=== PATIENT | male | born 1945 | race Caucasian/White ===

== ENCOUNTER 2018-03-02 06:56 | Observation (INO) | payer OTHER ==
[2018-03-02] MEDS ORDERED: NS 1,000 ML IV ONE (07:01)
--- NOTE | 2018-03-02 07:23 | CPEKG ---
Heart Rate: 67 RR Interval: 896 P-R Interval: 212 QRSD Interval: 118 QT Interval: 428 QTC Interval: 452 P [place]: -4 QRS [place]: -13 T Wave [place]: 68 EKG Severity - ABNORMAL ECG - EKG Impression: SINUS RHYTHM EKG Impression: VENTRICULAR TRIGEMINY EKG Impression: INCOMPLETE RIGHT BUNDLE BRANCH BLOCK Electronically Signed By: Parish Marcus 02-Mar-2018 10:57:42
[2018-03-02 07:40] LABS: PLATELET COUNT 256 10^3/uL (150-400)
[2018-03-02 07:52] LABS: PROTIME(PATIENT) 13.4 SEC (12.0-15.0)
[2018-03-02] MEDS ORDERED: MIDAZOLAM 2 MG/2 ML VIAL IVP ONE (08:07)
--- NOTE | 2018-03-02 08:07 | PDANEPAE ---
ANE Past Medical History - Pulmonary History Hx Sleep Apnea: No ANE Review of Systems Review of Systems: ANE Patient History - Allergies Allergies/Adverse Reactions: No Known Allergies Allergy (Unverified 06/16/10 06:43) - Home Medications Home Medications: Dutasteride [Avodart 0.5 MG (*)] 0.5 mg PO DAILY 06/16/10 [Last Taken Unknown] Metoprolol Succinate Xr [Toprol Xl 25 mg (*)] 12.5 mg PO DAILY 02/23/18 [Last Taken Unknown] Omeprazole 20 mg PO DAILY 02/23/18 [Last Taken Unknown] Tamsulosin HCl [Flomax 0.4 MG (*)] 0.4 mg PO DAILY 02/23/18 [Last Taken Unknown] - Smoking Hx Smoking Status: Former smoker ANE Labs/Vital Signs - Labs Result Diagrams: 03/02/18 07:26 03/02/18 07:26 - Vital Signs Height: 182.88 cm Weight: 77.111 kg ANE Physical Exam - Airway Neck exam: FROM Mallampati Score: Class 1 Mouth exam: normal dental/mouth exam - Pulmonary Pulmonary: no respiratory distress - Cardiovascular Cardiovascular: regular rate and rhythym - ASA Status ASA Status: II ANE Anesthesia Plan Anesthesia Plan: general endotracheal anesthesia, GA w LMA
[2018-03-02] MEDS ORDERED: REMIFENTANIL HCL 1 MG VIAL ONE (08:19)
[2018-03-02] MEDS ORDERED: PROPOFOL/EMULSION 500 MG/50 ML BOTTLE IV ONE ×2 (08:20→09:22)
[2018-03-02] MEDS ORDERED: LIDOCAINE 1% 300 MG/30 ML SDV ONE (08:22)
[2018-03-02] MEDS ORDERED: BUPIVACAINE 0.75% 10 ML SDV ONE (08:22)
[2018-03-02] MEDS ORDERED: ISOPROTERENOL HCL/D5W 0.2 MG/50 ML BAG IV ONE (08:22)
[2018-03-02] MEDS ORDERED: HEPARIN 10,000 UNIT/10 ML MDV (1,000 UNIT/ML) ONE (08:22)
[2018-03-02] MEDS ORDERED: MIDAZOLAM 2 MG/2 ML VIAL ONE (08:29)
--- NOTE | 2018-03-02 08:52 | PDGENHP ---
History & Physical Chief Complaint: palpitations History of Present Illness: palpitations, dizziness Relevant Physical Exam: s1s2 rrr cta ao3 Cardiorespiratory Assessment: for eps and ablation of either svt or afl
--- NOTE | 2018-03-02 10:54 | EPPROC ---
Electrophysiology Procedure Note: ELECTROPHYSIOLOGIC STUDY AND CATHETER MEDIATED ABLATION OF SLOW/FAST AV EFRAIN REENTRY TACHYCARDIA PROCEDURES PERFORMED: 97131-79 EP evaluation with RA/RV/LA pace/record, with arrhythmia induction 44925-30 EP evaluation with RA/RV pace record, insert/reposition catheter, with arrhythmia induction 65222 Intracardiac catheter ablation, SVT arrhythmogenic focus 98418 3D mapping Fluoroscopy INDICATION: SVT with presyncope PROCEDURE: Catheters & Anesthesia: The patient arrived in the Electrophysiology Laboratory in the fasting state. The right clavicular region, right groin, and left groin area were prepped and draped in the usual sterile manner. Anesthesiologist Dr. Sorin Sellers administered general anesthesia. Appropriate non-invasive blood pressure, pulse oximetry and end-tidal CO2 monitoring was established. All catheters were placed percutaneously using the modified Seldinger technique , and advanced into position under fluoroscopic guidance. One #6 Sudanese hexapolar non-deflectable electrode catheter was inserted into the right atrial appendage via the left femoral vein (2mm spacing; except the proximal ring which was 25cm from the tip used for unipolar recordings). One #7 Sudanese deflectable octapolar electrode catheter was advanced to the His-bundle position via the left femoral vein (2mm spacing). One #7 Sudanese deflectable quadrapolar catheter was advanced to the anteroseptal right ventricle via the right femoral vein. One #7 Sudanese deflectable catheter with 10 pairs of electrodes was placed via the right femoral vein into the coronary sinus. Heparin was given to keep ACT > 180 s. Programmed stimulation was performed from the right atrium, right ventricle and coronary sinus (left atrium). Parahisian pacing demonstrated constant H-A interval with changing V-A intervals and stimulus-A intervals during capture and loss of capture of proximal RBB proving retrograde conduction over AV node. AVNRT was induced easily at baseline. Ventricular extrastimuli delivered during tachycardia without altering antegrade His bundle activation did not advance next atrial potential, indicating that the tachycardia was not utilizing an accessory pathway for retrograde conduction. VA interval was 10 ms. Post entrainment of the tachycardia from the ventricle, there was VAHV response. Mapping of the right atrium and coronary sinus during AVNRT identified earliest atrial activation above the tendon of Jonny at a level slightly posterior to the level of the His bundle, consistent with retrograde conduction over the fast AV efrain pathway. A #8 Sudanese deflectable quadrapolar electrode catheter (2mm-5mm-2mm spacing) with 4 mm tip electrode and sensor for the 3D mapping Carto system was advanced to the right atrium. 3 D mapping of the inter-atrial septum and coronary sinus was performed and location of the AV node was marked. A SL3 sheath was used. RF applications were delivered to the region between the tricuspid annulus and the coronary sinus ostium, at the level of the upper edge of the coronary sinus ostium. Radiofrequency applications were also delivered along the roof of the proximal coronary sinus. Junctional rhythm occurred during all of the RF applications. Programmed stimulation was continued post ablation at baseline and during graded doses of isoproterenol upto 2mcg/min. Sustained AVNRT was not inducible. There were no echo beats. Atrial fibrillation was induced x 1 while burst pacing, this changed to AFL and required cardioversion. The catheters were removed. Sheaths were removed in the EP lab after applying subcutaneous purse string suture. The patient was transferred to the cardiovascular holding area in stable condition. There were no apparent complications. Results: A. Spontaneous Intervals: Pre ablation SCL 660 ms AH 80 ms HV 45 ms Post ablation SCL 710 ms AH 70 ms HV 45 ms B. Antegrade AV efrain function (decremental pacing) Pre ablation FPERP 420 ms SPERP 410 ms WBB CL 400 ms Post ablation FPERP 390 ms WBB CL 380 ms C. Retrograde AV efrain function (decremental pacing) Pre ablation FPERP 380 ms WBB CL 370 ms D. Arrhythmias: Sustained slow/fast AVNRT Cycle length 480 ms, AH interval 400 ms, METZGER interval 80 ms VA interval 10 ms CONCLUSIONS 1. AV efrain reentrant tachycardia using the slow AV efrain pathway for antegrade conduction and the fast AV efrain pathway for retrograde conduction. ( Slow/fast AVNRT). 2. Successful ablation of the slow AV efrain pathway with elimination of 1:1 antegrade conduction over the slow AV efrain pathway, all retrograde conduction over the slow AV efrain pathway and the inducibility of AVNRT. 3. No complications. Patient Problems: Problems Problem Status Onset Palpitations Acute
--- NOTE | 2018-03-02 11:04 | POSTANESTH ---
Post Anesthetic Evaluation Cardiovascular Status: Similar to Pre-Op Cond Respiratory Status: Similar to Pre-op Cond. Level of Consciousness/Mental Status: Alert and Oriented Pain Control: Adequate, Prn Tx Ordered Nausea/Vomiting Control: Adequate, Prn Tx Ordered Complications Possibly Related to Anesthesia: None Noted
--- NOTE | 2018-03-02 11:16 | CPEKG ---
Heart Rate: 54 RR Interval: 1111 P-R Interval: 216 QRSD Interval: 112 QT Interval: 476 QTC Interval: 452 P [place]: 56 QRS [place]: -23 T Wave [place]: 48 EKG Severity - ABNORMAL ECG - EKG Impression: SINUS RHYTHM EKG Impression: NONSPECIFIC INTRAVENTRICULAR CONDUCTION DELAY Electronically Signed By: Parish Marcus 03-Mar-2018 08:54:14
[2018-03-03 04:30] LABS: PLATELET COUNT 242 10^3/uL (150-400)
[2018-03-03 08:09] VITALS: BP 139/78
--- NOTE | 2018-03-03 08:57 | CPEKG ---
Heart Rate: 67 RR Interval: 896 P-R Interval: 216 QRSD Interval: 114 QT Interval: 412 QTC Interval: 435 P [place]: 14 QRS [place]: -52 T Wave [place]: 65 EKG Severity - ABNORMAL ECG - EKG Impression: SINUS RHYTHM EKG Impression: NONSPECIFIC IVCD WITH LAD Electronically Signed By: Salvatore Lyons 04-Mar-2018 11:12:45
--- NOTE | 2018-03-03 08:59 | ECHO ---
[email or web address] [address] [address] Main: [phone] Fax: Transthoracic Echocardiogram Name: THOMAS ESCALANTE MR#: [id number] Study Date: 03/03/2018 Study Time: 08:02 AM Date of : 1945 Age: 72 year(s) Height: 182.9 cm (72 in.) Weight: 77.11 kg (170 lb.) BSA: 1.99 m2 Gender: Male Examination: Echo Indication: F/U post EP study Image Quality: Contrast: Requested by: Parish Marcus BP: 146 mmHg/92 mmHg Heart Rate: Rhythm: Indication: F/U post EP study Procedure Staff Financial Compliance Manager: Alka Frank RDCS Reading Physician: Parish Marcus MD Requesting Provider: Parish Marcus MD Conclusions: Mildly dilated left ventricle. Normal global systolic LV function. Mild mitral valve regurgitation is present. MV chordal NOEL without obstruction.. Mild aortic valve regurgitation is present. Mildly dilated ascending aorta measuring 4.3 cm. Recc repeat echo in 1 year to assess ascending aorta Measurements: Chambers Valvular Assessment AV/MV Valvular Assessment TV/PV Normal Normal Normal Name Value Range Name Value Range Name Value Range Ao Chiquita (MM): 4.3 cm (2.2 cm-3.7 AV meanP mmHg ( - ) cm) AR (PHT): 809 ms ( - ) IVSd (2D): 0.7 cm (0.6 cm-1.1 MV E Vmax: 0.46 m/s ( - ) cm) MV A Vmax: 0.64 m/s ( - ) LVDd (2D): 6.2 cm (4.2 cm-5.9 MV E/A: 0.72 ( - ) cm) LVDs (2D): 4.0 cm (2.1 cm-4 cm) LVPWd (2D): 0.9 cm (0.6 cm-1 cm) LVEF (MOD4): 72 % (>=55 %) EF Range: 65-70 % Continued Measurements: Chambers Valvular Assessment AV/MV Name Value Name Value LADs: 4.1 cm MV E' Septal: 0.05 m/s Patient: THOMAS ESCALANTE Study Date: 03/03/2018 Page 1 of 2 08:02 AM LADs Lon.6 cm MV E/E' Septal: 9.40 LA Area: 23.8 cm2 MV E/E' Lateral: 11.80 AR Vmax: 4.08 cm/s Additional Vessels Name Value Ao Ascendin.3 cm Findings: Left Ventricle: Mildly dilated left ventricle. No LV hypertrophy. Normal global systolic LV function. The ejection fraction is estimated to be 65-70 %. No regional wall motion abnormality. Right Ventricle: Normal size right ventricle. Left Atrium: The left atrium is normal in size. Right Atrium: The right atrium is normal in size. Mitral Valve: Mild mitral valve regurgitation is present. MV chordal NOEL without obstruction.. Aortic Valve: The aortic valve is normal in appearance and function. The aortic valve is tri-leaflet. Mild aortic valve regurgitation is present. Tricuspid Valve: The tricuspid valve is normal in appearance and function. Trivial tricuspid valve regurgitation. Pulmonic Valve: The pulmonic valve is normal in appearance and function. Trivial pulmonic valve regurgitation. Aorta: The aorta is normal. Mildly dilated ascending aorta measuring 4.3 cm. Pericardium: No pericardial effusion. (No Signature Object) Patient: THOMAS ESCALANTE Study Date: 03/03/2018 Page 2 of 2 08:02 AM [id number]
[2018-03-03] MEDS ORDERED: ASPIRIN 81 MG CHEWABLE TAB PO SCH (09:00)
[2018-03-03] MEDS ORDERED: PANTOPRAZOLE SODIUM 40 MG TAB PO SCH (09:00)
[2018-03-03] MEDS ORDERED: DUTASTERIDE 0.5 MG CAP PO SCH (09:00)
--- NOTE | 2018-03-03 10:26 | GDS ---
[f rep st] DISCHARGE SUMMARY DISCHARGE DIAGNOSES: 1. AV martín reentrant tachycardia, status post ablation. 2. Ascending aortic aneurysm measuring 4.3 cm. 3. Hypertension. HOSPITAL COURSE: For detailed H and P, please see prior dictation. Briefly, the patient is a 72-yea r-old male who is referred to our office with SVT at a rate of 140 to 150 beats per minute. Earlier this year, he was shopping at [employer] when he had sudden onset of dizziness, presyncope and palpi tations. He had to sit down in the aisle and waited for his symptoms to resolve. After 5-10 minutes , his symptoms subsided and he was evaluated by Dr. Ulises Jalloh. He was found to have SVT at rate o f 140 to 150 beats per minute by Holter monitoring. He was started on metoprolol, but complained of significant orthostatic symptoms associated with the medication. He had a consultation with Dr. Shey Marcus, and ultimately decided to proceed with an EP study. He had am EP study on 03/02 and was iden tified to have an AV martín reentrant tachycardia, which was ablated. The following morning, he denie d any chest discomfort or palpitations. He was monitored on telemetry and remained in normal sinus r hythm. His EKG the day of discharge showed normal sinus rhythm with a heart rate of 67 beats per min vale. He has evidence of a first-degree AV block with a MA interval of 216. His troponin peaked at 0 .113. An echocardiogram at the time of discharge revealed preserved LV function without any evidence of pericardial effusion. He does have an ascending aortic aneurysm measuring 4.3 cm. There is also mild mitral regurgitation and a mildly dilated left ventricle. PHYSICAL EXAMINATION: GENERAL: The patient appears in no acute distress. VITALS: Blood pressure 1 39/78, heart rate 57, oxygen saturation 96% on room air, afebrile. LUNGS: Clear to auscultation. N o wheezes, rhonchi, or crackles auscultated. CARDIAC: Regular rate and rhythm without any significa nt murmurs, rubs, or gallops appreciated. EXTREMITIES: Bilateral groins where access was obtained f or the EP study and ablation are clean and intact without any evidence of infection or hematoma. DISCHARGE MEDICATIONS: Aspirin 81 mg daily, metoprolol succinate 12.5 mg daily, Avodart 0.5 mg daily , Flomax 0.4 mg daily, omeprazole 20 mg daily. PLAN: The patient is currently stable and ready for discharge home. He has been given groin precaut ions. He will follow up as scheduled on April 01 at 1:[address] Parish Marcus. He has a known ascending aortic aneurysm measuring 4.3 cm. He will need an echo in 1 year. He will also continue metoprolol. Unfortunately, he had significant orthostatic symptoms on metoprolol succi tiburcio 25 mg daily. His dose has been reduced to 12.5 mg daily. If he continues to be symptomatic on the lower dose, consider alternative antihypertensive medical therapy with lisinopril. Greater than 30 minutes was spent coordinating the patient's care today. /[id number]/MODL
--- NOTE | 2018-03-03 16:30 | ASMTDCNOTE ---
Case Management Discharge Discharge Order Complete? Answers: Yes Patient to Obtain Answers: via Family Medications Transportation Arranged Answers: Family/Friends Discharge Comments Notes: Pt D/C 'ed home independently. No CM needs identified. He has a follow up appt scheduled for 04/01 at 1:30PM with Dr Parish Marcus. Date Signed: 03/03/2018 04:30 PM Electronically Signed By:Stefanie Wild
--- NOTE | 2018-03-03 16:31 | ASMTLACE ---
NITA Acuity / Level of Answers: No Care: Did the patient have an inpatient admission? # of Emergency department Answers: 0 visits in the last 6 months Date Signed: 03/03/2018 04:31 PM Electronically Signed By:Stefanie Wild
== END 2018-03-03 11:20 | disposition home or self-care (01) ==
LOC: FCATH 06:56 → F2W 10:54
PROVIDERS: ADMIT Internal Medicine Cardiovascular Disease; ATTEND Internal Medicine Cardiovascular Disease
DX: I47.1 Supraventricular tachycardia (principal); I71.2 Thoracic aortic aneurysm, without rupture; I10 Essential (primary) hypertension
CPT/HCPCS: 93005; 93306; 93613; 93621; 93623; 93653; C1730; C1731; C1732; C1893; J1644; J2250; J2704